=== PATIENT | male | born 1985 | race African-American/Black ===

== ENCOUNTER → 2019-02-12 | Outpatient (CLI) | payer OTHER ==
--- NOTE | 2019-02-12 14:22 | REP ---
Clinical: Trauma. Technique: AP, lateral, bilateral oblique views right hand . Findings: The osseous structures and joint spaces are intact and normal. There is no evidence for acute fracture or dislocation. Surrounding soft tissues are unremarkable. No subcutaneous emphysema or radiodense foreign body. Impression: No obvious acute fracture or dislocation. Electronically Signed by Dre Ohara MD 02/12/2019 02:13 P
--- NOTE | 2019-02-12 15:15 | REP ---
RIGHT WRIST, FOUR VIEWS: HISTORY: Sprain. There is no acute fracture or dislocation. The joint spaces are normal in appearance. IMPRESSION: There is no acute fracture or dislocation. Electronically Signed by Dustin Larsen MD 02/12/2019 03:22 P
== END ==
LOC: M WUC 13:48
PROVIDERS: ATTEND Nurse Practitioner Primary Care
DX: S63.8X1A Sprain of other part of right wrist and hand, initial encounter (principal); X58.XXXA Exposure to other specified factors, initial encounter; Y92.89 Other specified places as the place of occurrence of the external cause